=== PATIENT | male | born 1970 ===

== ENCOUNTER 2018-08-29 05:04 | Emergency (ER) | payer SELFPAY ==
[2018-08-29] MEDS ORDERED: ALBUTEROL 2.5 MG/3 ML NEB SOL ONE (06:29)
[2018-08-29] MEDS ORDERED: FUROSEMIDE 40 MG/4 ML VIAL ONE (06:29)
[2018-08-29] MEDS ORDERED: IPRATROPIUM BROM 0.5MG/2.5ML ONE (06:29)
[2018-08-29 07:04] LABS: Absolute Lymphocytes (CBC) 2.5 K/uL (0.7-4.9); Absolute Neutrophil 5.2 K/uL (1.8-8.0); Basophils % 1.2 % (0-1.3); Eosinophils % 1.6 % (0-4.4); Hematocrit 49.5 % (39.6-49.0); Lymphocytes % 27.7 % (15.3-44.8); MCH 30.8 pg (27.0-35.0); MPV 9.7 fL (7.6-11.3); Monocytes % 10.8 % (3.3-12.3); RBC Red Blood Cell Count 5.44 M/uL (4.33-5.43)
[2018-08-29 07:05] LABS: Protime INR 0.86
[2018-08-29 07:26] LABS: ALT/SGPT 58 U/L (12-78); AST/SGOT 26 U/L (15-37); Albumin 2.8 g/dL (3.4-5.0); Alkaline Phosphatase 111 U/L (45-117); BUN Blood Urea Nitrogen 19 mg/dL (7-18); Bicarbonate 23 mmol/L (21-32); Bilirubin Direct 0.1 mg/dL (0-0.2); Bilirubin Total 0.3 mg/dL (0.2-1.0); Magnesium 1.7 mg/dL (1.8-2.4); NT PRO-BNP 56 pg/mL (<125); Potassium 3.9 mmol/L (3.5-5.1); Protein, Total 7.3 g/dL (6.4-8.2); Sodium Level 135 mmol/L (136-145); Troponin (Emerg Dept Use Only) < 0.02 ng/mL (0.0-0.045)
[2018-08-29 07:27] LABS: Glucose Level 419 mg/dL (74-106)
[2018-08-29] MEDS ORDERED: INSULIN -REGULAR HUMAN 50 UNIT/0.5 ML ML ONE (08:55)
[2018-08-29] MEDS ORDERED: MAGNESIUM OXIDE 400 MG TAB ONE (08:56)
--- NOTE | 2018-08-29 10:29 | RAD REPORT ---
EXAM DESCRIPTION: RAD - Chest Single View - 08/29/2018 6:33 am CLINICAL HISTORY: CHEST PAIN Chest pain. COMPARISON: No comparisons FINDINGS: Portable technique limits examination quality. Mildly prominent interstitial lung markings are seen. The heart is normal in size. No displaced fract ures. IMPRESSION: Mild interstitial pulmonary edema versus interstitial pneumonia.
--- NOTE | 2018-08-29 11:55 | EKG ---
Test Date: 2018-08-29 Test Time: 05:26:58 Carpenter Repair: BETHEL MEASUREMENT RESULTS: Intervals: Rate: 96 NM: 158 QRSD: 88 QT: 338 QTc: 427 Ames: P: 20 NM: 158 QRS: 40 T: 69 INTERPRETIVE STATEMENTS: Normal sinus rhythm Normal ECG No previous ECG available for comparison Electronically Signed On 08-29-18 11:54:13 LANDFILL GAS COLLECTION OPERATOR by Gee Rogel
--- NOTE | 2018-08-29 12:28 | ER ---
Nurse's Notes [facility] Name: Gilson Vivas Age: 48 yrs Sex: Male : 1970 Arrival Date: 08/29/2018 Time: 05:05 Bed 5 Private MD: Diagnosis: Unspecified combined systolic (congestive) and diastolic (congestive) heart failure;Hyperglycemia, unspecified Presentation: 08/29 05:20 Presenting complaint: Patient states: he has a hx of CHF and has been fighting a cold bb all week with a cough but cough has gotten worse and now he is having chest pain as well. Pt states his abdomen is tight and distended with pain on palpitation to right upper quadrant has had diarrhea x 2 days denies vomiting. Transition of care: patient was not received from another setting of care. Onset of symptoms was August 21, 2018. Risk Assessment: Do you want to hurt yourself or someone else? Patient reports no desire to harm self or others. Initial Sepsis Screen: Does the patient meet any 2 criteria? No. Patient's initial sepsis screen is negative. Does the patient have a suspected source of infection? No. Patient's initial sepsis screen is negative. Care prior to arrival: None. 05:20 Method Of Arrival: Ambulatory bb 05:20 Acuity: ENEDINA 3 bb Historical: - Allergies: 05:25 PENICILLINS; bb 05:34 Aspirin; bb - Home Meds: 05:34 carvedilol oral 32 mg oral 2 times per day [Active]; Lasix 40 mg oral tab 1 tab 2 times bb per day [Active]; enalapril maleate 10 mg oral tab 1 tab once daily [Active]; Allopurinol Oral [Active]; simvastatin 40 mg oral tab 1 tab once daily [Active]; metformin 1,000 mg oral tab 1 tab 2 times per day [Active]; aspirin 81 mg Oral chew [Active]; - PMHx: 05:25 CHF; Diabetes - NIDDM; Gout; bb - PSHx: 05:25 heart cath; bb - Immunization history:: Adult Immunizations up to date. - Social history:: Smoking status: Patient uses tobacco products, smokes one pack cigarettes per day. Patient uses street drugs, marijuana, Patient/guardian denies using alcohol. - Ebola Screening: : No symptoms or risks identified at this time. Screenin:31 Abuse screen: Denies threats or abuse. Nutritional screening: No deficits noted. ea Tuberculosis screening: No symptoms or risk factors identified. Fall Risk None identified. Assessment: 05:27 General: Appears uncomfortable, Behavior is calm, cooperative, appropriate for age. ea Pain: Complains of pain in chest Pain currently is 8 out of 10 on a pain scale. Quality of pain is described as aching, Aggravated by coughing. Neuro: Level of Consciousness is awake, alert, obeys commands, Oriented to person, place, time, situation. Cardiovascular: Heart tones S1 S2 present Patient's skin is warm and dry. Rhythm is sinus rhythm. Respiratory: Airway is patent Respiratory effort is even, unlabored, Respiratory pattern is regular, symmetrical, Breath sounds are coarse bilaterally. GI: Abdomen is obese, Bowel sounds present X 4 quads. Derm: Skin is pink, warm \T\ dry. 06:55 Reassessment: Patient and/or family updated on plan of care and expected duration. Pain ea level reassessed. Patient is alert, oriented x 3, equal unlabored respirations, skin warm/dry/pink. 07:15 Reassessment: Patient appears in no apparent distress at this time. Patient and/or hb family updated on plan of care and expected duration. Pain level reassessed. Patient is alert, oriented x 3, equal unlabored respirations, skin warm/dry/pink. 08:15 Reassessment: Patient appears in no apparent distress at this time. No changes from hb previously documented assessment. Patient and/or family updated on plan of care and expected duration. Pain level reassessed. Patient is alert, oriented x 3, equal unlabored respirations, skin warm/dry/pink. 09:16 Reassessment: Patient appears in no apparent distress at this time. No changes from hb previously documented assessment. Patient and/or family updated on plan of care and expected duration. Pain level reassessed. Patient is alert, oriented x 3, equal unlabored respirations, skin warm/dry/pink. 10:15 Reassessment: Patient appears in no apparent distress at this time. No changes from hb previously documented assessment. Patient and/or family updated on plan of care and expected duration. Pain level reassessed. Patient is alert, oriented x 3, equal unlabored respirations, skin warm/dry/pink. Vital Signs: 05:25 BP 127 / 86; Pulse 94; Resp 24 S; Pulse Ox 97% on R/A; Weight 117.93 kg (R); Height 5 bb ft. 10 in. (177.80 cm) (R); Pain 6/10; 05:32 Temp 99.3; bb 06:58 BP 123 / 79; Pulse 87; Resp 20; Pulse Ox 99% ; ea 08:13 BP 136 / 83; Pulse 80; Resp 16; Pulse Ox 95% on R/A; hb 09:16 BP 132 / 91; Pulse 78; Resp 18; Pulse Ox 96% on R/A; hb 10:20 BP 122 / 79; Pulse 74; Resp 18; Pulse Ox 96% on R/A; sg 11:53 BP 124 / 70; Pulse 77; Resp 17; Pulse Ox 98% on R/A; Pain 0/10; sg 05:25 Body Mass Index 37.31 (117.93 kg, 177.80 cm) bb ED Course: 05:05 Patient arrived in ED. al2 05:20 Teresita Schwartz, RN is Primary Nurse. ea 05:22 Triage completed. bb 05:25 Arm band placed on Patient placed in an exam room, on a stretcher, on food stand manager, bb on pulse oximetry. EKG completed in triage. Results shown to MD. Family accompanied patient. 05:32 Patient has correct armband on for positive identification. Bed in low position. Call ea light in reach. Side rails up X2. 06:01 Lyndon Cancino NP is PHCP. pm1 06:01 Jason Sun MD is Attending Physician. pm1 06:10 Initial lab(s) drawn, by me, sent to lab. Inserted saline lock: 20 gauge in right bb antecubital area, using aseptic technique. Blood collected. 06:29 X-ray completed. Portable x-ray completed in exam room. Patient tolerated procedure sg4 well. 06:32 XRAY Chest (1 view) In Process Unspecified. EDMS 07:07 Report given to Alix COTA. ea 11:17 Primary Nurse role handed off by Teresita Schwartz, RN sg 11:17 Abimael Krueger, BEATA is Primary Nurse. sg 11:50 Repeat lab(s) drawn. by me, sent to lab. sg Administered Medications: 06:25 Drug: Albuterol 2.5 mg Route: Inhalation; ea 06:57 Follow up: Response: No adverse reaction; Marked relief of symptoms ea 06:25 Drug: AtroVENT Aerosol 0.5 mg Route: Inhalation; ea 06:57 Follow up: Response: No adverse reaction; Marked relief of symptoms ea 06:25 Drug: Lasix 40 mg Route: IVP; Site: right forearm; ea 08:00 Follow up: Urine output 2000 ml; Response: No adverse reaction sg 08:50 Drug: Insulin Regular Human 5 units {Co-Signature: layla (Abimael Krueger RN).} Route: Sub-Q; ss Site: right upper arm; 11:50 Follow up: Response: No adverse reaction sg 08:57 Drug: Magnesium 400 mg Route: PO; ss 11:52 Follow up: Response: No adverse reaction sg Point of Care Testing: Blood Glucose: 11:53 Blood Glucose: 216 mg/dL; sg Ranges: Output: 08:00 Urine: 2000ml; Total: 2000ml. sg Outcome: 12:27 Discharge ordered by . pm1 12:38 Patient left the ED. ms Signatures: Dispatcher [employer] Abimael Carver RN Olivia Prather RN Misa Alexis ms, Shelby, RN RN ss Lyndon Cancino, AIRWORTHINESS INSPECTOR AIRWORTHINESS INSPECTOR pm1 Alix Reyez RN Teresita Vicente RN RN ea Love, Angelica al2 Garcia, Susana sg4 Abimael Krueger RN sg Corrections: (The following items were deleted from the chart) 05:35 05:25 Home Meds: carvedilol oral oral; bb bb 05:35 05:25 Home Meds: Lasix Oral; bb bb 05:35 05:25 Home Meds: Enalapril Oral; bb bb 05:35 05:25 Home Meds: Allopurinol Oral; bb bb 05:35 05:25 Home Meds: Simvastatin Oral; bb bb 05:35 05:25 Home Meds: Metformin Oral; bb bb
--- NOTE | 2018-08-29 12:28 | EDPHYS ---
Physician Documentation [facility] Name: Gilson Vivas Age: 48 yrs Sex: Male : 1970 Arrival Date: 08/29/2018 Time: 05:05 Bed 5 Private MD: ED Physician Jason Sun Historical: - Allergies: 08/29 05:25 PENICILLINS; bb 05:34 Aspirin; bb - Home Meds: 05:34 carvedilol oral 32 mg oral 2 times per day [Active]; Lasix 40 mg oral tab 1 tab 2 times bb per day [Active]; enalapril maleate 10 mg oral tab 1 tab once daily [Active]; Allopurinol Oral [Active]; simvastatin 40 mg oral tab 1 tab once daily [Active]; metformin 1,000 mg oral tab 1 tab 2 times per day [Active]; aspirin 81 mg Oral chew [Active]; - PMHx: 05:25 CHF; Diabetes - NIDDM; Gout; bb - PSHx: 05:25 heart cath; bb - Immunization history:: Adult Immunizations up to date. - Social history:: Smoking status: Patient uses tobacco products, smokes one pack cigarettes per day. Patient uses street drugs, marijuana, Patient/guardian denies using alcohol. - Ebola Screening: : No symptoms or risks identified at this time. Vital Signs: 05:25 BP 127 / 86; Pulse 94; Resp 24 S; Pulse Ox 97% on R/A; Weight 117.93 kg (R); Height 5 bb ft. 10 in. (177.80 cm) (R); Pain 6/10; 05:32 Temp 99.3; bb 06:58 BP 123 / 79; Pulse 87; Resp 20; Pulse Ox 99% ; ea 08:13 BP 136 / 83; Pulse 80; Resp 16; Pulse Ox 95% on R/A; hb 09:16 BP 132 / 91; Pulse 78; Resp 18; Pulse Ox 96% on R/A; hb 10:20 BP 122 / 79; Pulse 74; Resp 18; Pulse Ox 96% on R/A; sg 11:53 BP 124 / 70; Pulse 77; Resp 17; Pulse Ox 98% on R/A; Pain 0/10; sg 05:25 Body Mass Index 37.31 (117.93 kg, 177.80 cm) bb MDM: 06:14 Patient medically screened. pm1 11:49 Physician consultation: Jason Swanson MD regarding patient's condition, Recommends pm1 repeat troponin. If troponin negative can send the patient home with instruction to increase his Lasix from 40 mg PO BID to 80 mg PO BID for 2 days and to follow up with PCP in 2-3 days. 12:06 Data reviewed: vital signs. Data interpreted: Pulse oximetry: on room air is 98 %. pm1 Interpretation: normal. 12:26 Counseling: I had a detailed discussion with the patient and/or guardian regarding: the pm1 historical points, exam findings, and any diagnostic results supporting the discharge/admit diagnosis, lab results, radiology results, the need for outpatient follow up, to return to the emergency department if symptoms worsen or persist or if there are any questions or concerns that arise at home. 08/29 06:03 Order name: Basic Metabolic Panel; Complete Time: 07:29 08/29 06:03 Order name: CBC with Diff; Complete Time: 07:26 08/29 06:03 Order name: LFT's; Complete Time: 07:29 08/29 06:03 Order name: Magnesium; Complete Time: 07:29 08/29 06:03 Order name: NT PRO-BNP; Complete Time: 07:29 08/29 06:03 Order name: PT-INR; Complete Time: 07:26 08/29 06:03 Order name: Troponin (emerg Dept Use Only); Complete Time: 07:29 08/29 06:03 Order name: XRAY Chest (1 view); Complete Time: 10:38 08/29 06:15 Order name: Flu; Complete Time: 07:26 pm08/29 06:15 Order name: Blood Culture Adult (2); Complete Time: 22:46 pm1 08/29 11:36 Order name: Troponin (emerg Dept Use Only); Complete Time: 12:26 pm08/29 06:03 Order name: EKG; Complete Time: 06:04 08/29 06:03 Order name: Cardiac monitoring; Complete Time: 06:03 08/29 06:03 Order name: EKG - Nurse/Tech; Complete Time: 06:03 08/29 06:03 Order name: IV Saline Lock; Complete Time: 06:12 08/29 06:03 Order name: Labs collected and sent; Complete Time: 06:12 bb 08/29 06:03 Order name: O2 Per Protocol; Complete Time: 06:03 bb 08/29 06:03 Order name: O2 Sat Monitoring; Complete Time: 06:03 bb Administered Medications: 06:25 Drug: Albuterol 2.5 mg Route: Inhalation; ea 06:57 Follow up: Response: No adverse reaction; Marked relief of symptoms ea 06:25 Drug: AtroVENT Aerosol 0.5 mg Route: Inhalation; ea 06:57 Follow up: Response: No adverse reaction; Marked relief of symptoms ea 06:25 Drug: Lasix 40 mg Route: IVP; Site: right forearm; ea 08:00 Follow up: Urine output 2000 ml; Response: No adverse reaction sg 08:50 Drug: Insulin Regular Human 5 units {Co-Signature: layla (Abimael Krueger RN).} Route: Sub-Q; ss Site: right upper arm; 11:50 Follow up: Response: No adverse reaction sg 08:57 Drug: Magnesium 400 mg Route: PO; ss 11:52 Follow up: Response: No adverse reaction sg Point of Care Testing: Blood Glucose: 11:53 Blood Glucose: 216 mg/dL; sg Ranges: Critical Glucose Levels:Adult <50 mg/dl or >400 mg/dl <40 mg/dl or >180 mg/dl Disposition: 08/29/18 12:27 Discharged to Home. Impression: Unspecified combined systolic (congestive) and diastolic (congestive) heart failure, Hyperglycemia, unspecified. - Condition is Stable. - Discharge Instructions: Heart Failure, Hyperglycemia, Blood Glucose Monitoring, Adult. - Medication Reconciliation Form, Thank You Letter form. - Work release form (08/29/18 12:50). em - Follow up: Emergency Department; When: As needed; Reason: Worsening of condition. Follow up: Private Physician; When: 2 - 3 days; Reason: Recheck today's complaints, Continuance of care, Re-evaluation by your physician. - Problem is new. - Symptoms have improved. Addendum: 09/05/2018 20:03 Co-signature as Attending Physician, Jason ambrocio 09/17/2018 22:33 Addendum: HPI: 48 yrs old male presents to the ED with complaints of chest pain and p m1 shortness of breath. Onset of shortness of breath for 1 week and chest pain started today. Pain is in the midsternal area. No radiation of pain. Associated signs and symptoms: Negative abdominal pain, diaphoresis, fever, dizziness, headache, nausea, vomiting. Positive: shortness of breath, cough. The patient reports a single episode of chest pain that is still ongoing. Modifying factors: The symptoms are aggravated by cough. Severity of pain: in the ER the pain is unchanged. Patient has been fighting off a cold for 1 week and feels that his cough is getting worse. No fever or sputum. He has a history of CHF and has been taking his Lasix as directed. he feels that his abdomen is distended. 22:39 Addendum: ROS: Constitutional: Negative for fever, chills, and weight loss, Eyes: p m1 Negative for injury, pain, redness, and discharge, ENT: Negative for injury, pain, and discharge. Neck: Negative for injury, pain, and swelling, Respiratory: Positive for shortness of breath and cough, negative for wheezing. Abdomen/GI: positive for swelling, negative for pain, nausea, vomiting, diarrhea, constipation. Back: negative for injury and pain. : negative for injury, bleeding, discharge, and swelling, MS/Extremity: negative for injury and deformity, Skin: negative for injury, rash, and discoloration, Neuro: negative for headache, weakness, numbness, tingling, and seizure. Cardiovascular: positive for chest pain, negative for orthopnea, palpitations. 22:46 Addendum: Exam: Constitutional: This is a well developed, well nourished patient who is p m1 awake, alert, and in no acute distress. Head/Face: Normocephalic, atraumatic. Eyes: Pupils equal round and reactive to light, extra-ocular movements intact. Lids and lashes normal. Conjuctiva and sclera are non-icteric and not injected. Cornea within normal limits. Periorbital areas with no swelling, redness, or edema. ENT: Nares patent. No nasal discharge, no septal abnormalities noted. TM are normal and external auditory canals are clear. Oropharynx with no redness, swelling, or masses, exudates, or evidence of obstruction. mucous membranes moist. Neck: Trachea midline, no thyromegaly or masses palpated, and no cervical lymphadenopathy. Supple, FROM. No meningismus. Cardiovascular: Regular rate and rhythm with normal S! and S2. no gallops, murmurs, or rubs. normal PMI, no JVD. No pulse deficits. Respiratory: Diminished breath sounds at bilateral bases. Abdomen/GI: Soft, non-tender, with normal bowel sounds. no distension or tympany, no guarding or rebound. No evidence of tenderness throughout. Back: No spinal tenderness. no CVA tenderness. FROM. Skin: Warm, dry with normal turgor. Normal color with no rashes, no lesions, and no evidence of cellulitis. MS/Extremity: Pulses equal, no cyanosis. neurovascular intact. FROM. Chest/Axilla: inspection normal. Palpation: no tenderness. Neuro: Orientation is normal, Motor: is normal, moves all fours, Sensation: is normal, no obvious gross deficits, Gait is steady, at a normal pace, without difficulty. Signatures: Dispatcher [employer] EDMS Jason Sun MD MD pkl Ballard, Brenda, RN Misa Alexis ms, Shelby, RN RN ss Marinas, Patrick, RAH UNIONMELT OPERATOR pm1 Teresita Schwartz RN RN ea Gay, Steven RN sg Lobito Little LVN em Abimael Krueger RN sg Corrections: (The following items were deleted from the chart) 08/29 05:35 05:25 Home Meds: carvedilol oral oral; bb bb 05:35 05:25 Home Meds: Lasix Oral; bb bb 05:35 05:25 Home Meds: Enalapril Oral; bb bb 05:35 05:25 Home Meds: Allopurinol Oral; bb bb 05:35 05:25 Home Meds: Simvastatin Oral; bb bb 05:35 05:25 Home Meds: Metformin Oral; bb bb 12:30 12:27 08/29/2018 12:27 Discharged to Home. Impression: Unspecified combined systolic pm1 (congestive) and diastolic (congestive) heart failure. Condition is Stable. Forms are Medication Reconciliation Form, Thank You Letter, Antibiotic Education, Prescription Opioid Use. Follow up: Emergency Department; When: As needed; Reason: Worsening of condition. Follow up: Private Physician; When: 2 - 3 days; Reason: Recheck today's complaints, Continuance of care, Re-evaluation by your physician. Problem is new. Symptoms have improved. pm1 12:38 12:30 08/29/2018 12:27 Discharged to Home. Impression: Unspecified combined systolic ms (congestive) and diastolic (congestive) heart failure; Hyperglycemia, unspecified. Condition is Stable. Discharge Instructions: Heart Failure, Hyperglycemia. Forms are Medication Reconciliation Form, Thank You Letter. Follow up: Emergency Department; When: As needed; Reason: Worsening of condition. Follow up: Private Physician; When: 2 - 3 days; Reason: Recheck today's complaints, Continuance of care, Re-evaluation by your physician. Problem is new. Symptoms have improved. pm1
== END 2018-08-29 12:38 | disposition home or self-care (01) ==
LOC: ER 05:04
DX: I50.40 Unspecified combined systolic (congestive) and diastolic (congestive) heart failure (principal); E11.65 Type 2 diabetes mellitus with hyperglycemia; F17.210 Nicotine dependence, cigarettes, uncomplicated; Z88.0 Allergy status to penicillin; Z88.6 Allergy status to analgesic agent
CPT/HCPCS: 36415; 71045; 80048; 80076; 82962; 83735; 83880; 84484; 85025; 85610; 87040; 87804; 93005; 96372; 96374; 99285; J1940